=== PATIENT | male | born 1985 | race African-American/Black ===

== ENCOUNTER 2018-08-02 15:23 | Emergency (ER) | payer SELFPAY ==
[~2018-08-02] VITALS: Ht 182.9 cm; Wt 95.3 kg
[2018-08-02 16:00] LABS: BASO # 0.1 x10^3/uL (0.0-0.2); BASO % 0 % (0-3); EOS # 0.3 x10^3/uL (0.0-0.7); EOS % 2 % (0-3); HEMATOCRIT 44.2 % (39.0-53.0); HEMOGLOBIN 15.4 g/dL (13.0-17.5); LYMPH # 1.7 x10^3/uL (1.0-4.8); LYMPH % 10 % (24-48); MEAN CORPUSCULAR HEMOGLOBIN 31 pg (25-35); MEAN CORPUSCULAR HGB CONC 35 g/dL (31-37); MEAN CORPUSCULAR VOLUME 88 fL (79-100); MONO # 1.2 x10^3/uL (0.0-1.1); MONO % 7 % (0-9); NEUT # 13.4 x10^3uL (1.8-7.7); NEUT % 80 % (31-73); PLATELET COUNT 226 x10^3/uL (140-400); RED BLOOD COUNT 5.05 x10^6/uL (4.30-5.70); RED CELL DISTRIBUTION WIDTH 13.7 % (11.5-14.5); WHITE BLOOD COUNT 16.6 x10^3/uL (4.0-11.0)
--- NOTE | 2018-08-02 16:14 | RAD ---
History: Patient with nausea and vomiting for 2 days. Epigastric pain. Comparison: None. Findings: AP view of abdomen. Bowel gas pattern is nonspecific, without evidence of obstruction. Mild amount of stool is seen. Impression: Nonspecific bowel gas pattern. Electronically signed by: Haroon Negron MD (08/02/2018 4:10 PM) [place] [id number]
[2018-08-02] MEDS ORDERED: IOHEXOL 300 MG/ML 100ML VIAL. IV ONE (16:15)
[2018-08-02] MEDS ORDERED: CONTRAST GIVEN. MC PRN (16:15)
[2018-08-02] MEDS ORDERED: ONDANSETRON PF 4 MG/2 ML VIAL. IV ONE (16:30)
[2018-08-02] MEDS ORDERED: IV NORMAL SALINE 1000ML BAG 1,000 ML IV ONE (16:30)
[2018-08-02 16:36] LABS: BILIRUBIN,URINE NEGATIVE (NEG); CLARITY,URINE CLEAR; COLOR,URINE AMBER; NITRITE,URINE NEGATIVE (NEG); PH,URINE 7.5; PROTEIN,URINE 100 mg/dL (NEG-TRACE); UROBILINOGEN,URINE 0.2 mg/dL (0.2 mg/dL)
[2018-08-02 16:39] LABS: BARBITURATES NEG (NEG); BENZODIAZEPINES NEG (NEG); CANNABINOIDS NEG (NEG); COCAINE NEG (NEG); METHADONE NEG (NEG); OPIATES NEG (NEG); PHENCYCLIDINE NEG (NEG)
[2018-08-02 16:41] LABS: AMPHETAMINE/METHAMPHETAMINE NEG (NEG)
[2018-08-02 16:53] LABS: CREATININE 0.9 mg/dL (0.7-1.3); GFR 116.9; POTASSIUM 3.3 mmol/L (3.5-5.1)
[2018-08-02 16:55] LABS: BACTERIA,URINE 0 /HPF (0-FEW); SQUAMOUS EPITHELIAL CELL,UR FEW /LPF
[2018-08-02 16:58] LABS: % BANDS 3 % (0-9); % EOS 2 % (0-5); % LYMPHS 11 % (24-48); % MONOS 6 % (0-10); % SEGS 78 % (35-66); PLT ESTIMATE ADEQUATE (ADEQUATE)
[2018-08-02 16:59] LABS: ALBUMIN/GLOBULIN RATIO 0.8 (1.0-1.7); TOTAL PROTEIN 6.7 g/dL (6.4-8.2)
[2018-08-02] MEDS ORDERED: cloNIDine HCL 0.1 MG TABLET PO ONE (17:15)
[2018-08-02] MEDS ORDERED: MORPHINE SULFATE 10 MG/ML VIAL. IV ONE (17:15)
--- NOTE | 2018-08-02 17:15 | PHYS DOC ---
Adult General Chief Complaint Chief Complaint: ABDOMINAL PAIN HPI HPI Patient is a 33 year old male with no significant medical history who presents with 10/10 bilateral upper abdominal pain that began Tuesday which is days ago. Patient described as abdominal distention. He is also complaining of vomiting with nausea since Tuesday. He states when symptoms began he thought he was constipated, he states he took [id number] bowel preps/laxatives, he states he developed diarrhea. He states since yesterday has had vomiting and diarrhea. She states he feels his stomach is distended. Patient denies any fever. Review of Systems Review of Systems Constitutional: Denies fever or chills [] Eyes: Denies change in visual acuity, redness, or eye pain [] HENT: Denies nasal congestion or sore throat [] Respiratory: Denies cough or shortness of breath [] Cardiovascular: No additional information not addressed in HPI [] GI: Reports abdominal pain, abdominal distention, nausea and vomiting and diarrhea : Denies dysuria or hematuria [] Musculoskeletal: Denies back pain or joint pain [] Integument: Denies rash or skin lesions [] Neurologic: Denies headache, focal weakness or sensory changes [] All other systems were reviewed and found to be within normal limits, except as documented in this note. Current Medications Current Medications Current Medications Medications (Trade) Dose Ordered Sig/Leann Start Time Stop Time Status Last Admin Dose Admin Clonidine HCl (Catapres) 0.2 mg 1X ONCE 08/02/18 17:15 08/02/18 17:16 DC 08/02/18 17:20 0.2 MG Info (CONTRAST GIVEN -- Rx MONITORING) 1 each PRN DAILY PRN 08/02/18 16:15 08/04/18 16:14 Iohexol (Omnipaque 300 Mg/ml) 75 ml 1X ONCE 08/02/18 16:15 08/02/18 16:16 DC 08/02/18 16:15 75 ML Morphine Sulfate (Morphine Sulfate) 5 mg 1X ONCE 08/02/18 17:15 08/02/18 17:16 DC 08/02/18 17:21 5 MG Ondansetron HCl (Zofran) 4 mg 1X ONCE 08/02/18 16:30 08/02/18 16:31 DC 08/02/18 16:23 4 MG Sodium Chloride 1,000 ml @ 1,000 mls/hr 1X ONCE 08/02/18 16:30 08/02/18 17:29 DC 08/02/18 16:24 1,000 MLS/HR Allergies Allergies Allergies Coded Allergies Type Severity Reaction Last Updated Verified No Known Drug Allergies 08/02/18 No Physical Exam Physical Exam Constitutional: Well developed, well nourished, no acute distress, non-toxic appearance. [] HENT: Normocephalic, atraumatic, bilateral external ears normal, oropharynx moist, no oral exudates, nose normal. [] Eyes: PERRLA, EOMI, conjunctiva normal, no discharge. [] Neck: Normal range of motion, no tenderness, supple, no stridor. [] Cardiovascular:Heart rate regular rhythm, no murmur [] Lungs & Thorax: Bilateral breath sounds clear to auscultation [] Abdomen: Tenderness on palpation of bilateral upper abdomen worse on the left upper quadrant. Bowel sounds normal, soft, no right lower quadrant tenderness, no masses, no pulsatile masses. Negative York sign, negative psoas sign, negative obturator sign. Skin: Warm, dry, no erythema, no rash. [] Back: No tenderness, no CVA tenderness. [] Extremities: No tenderness, no cyanosis, no clubbing, ROM intact, no edema. [] Neurologic: Alert and oriented X 3, normal motor function, normal sensory function, no focal deficits noted. [] Psychologic: Affect normal, judgement normal, mood normal. [] Current Patient Data Vital Signs Vital Signs Date Time Temp Pulse Resp B/P (MAP) Pulse Ox O2 Delivery O2 Flow Rate FiO2 08/02/18 17:21 16 08/02/18 17:20 91 200/109 08/02/18 15:53 98.6 97 Room Air 98.6 Lab Values Laboratory Tests Test 08/02/18 13:50 08/02/18 16:25 White Blood Count 16.6 x10^3/uL (4.0-11.0) H Red Blood Count 5.05 x10^6/uL (4.30-5.70) Hemoglobin 15.4 g/dL (13.0-17.5) Hematocrit 44.2 % (39.0-53.0) Mean Corpuscular Volume 88 fL (79-100) Mean Corpuscular Hemoglobin 31 pg (25-35) Mean Corpuscular Hemoglobin Concent 35 g/dL (31-37) Red Cell Distribution Width 13.7 % (11.5-14.5) Platelet Count 226 x10^3/uL (140-400) Neutrophils (%) (Auto) 80 % (31-73) H Lymphocytes (%) (Auto) 10 % (24-48) L Monocytes (%) (Auto) 7 % (0-9) Eosinophils (%) (Auto) 2 % (0-3) Basophils (%) (Auto) 0 % (0-3) Neutrophils # (Auto) 13.4 x10^3uL (1.8-7.7) H Lymphocytes # (Auto) 1.7 x10^3/uL (1.0-4.8) Monocytes # (Auto) 1.2 x10^3/uL (0.0-1.1) H Eosinophils # (Auto) 0.3 x10^3/uL (0.0-0.7) Basophils # (Auto) 0.1 x10^3/uL (0.0-0.2) Segmented Neutrophils % 78 % (35-66) H Band Neutrophils % 3 % (0-9) Lymphocytes % 11 % (24-48) L Monocytes % 6 % (0-10) Eosinophils % 2 % (0-5) Platelet Estimate Adequate (ADEQUATE) Urine Collection Type Unknown Urine Color Zo Urine Clarity Clear Urine pH 7.5 Urine Specific [place] 1.015 Urine Protein 100 mg/dL (NEG-TRACE) Urine Glucose (UA) Negative mg/dL (NEG) Urine Ketones (Stick) 40 mg/dL (NEG) Urine Blood Negative (NEG) Urine Nitrite Negative (NEG) Urine Bilirubin Negative (NEG) Urine Urobilinogen Dipstick 0.2 mg/dL (0.2 mg/dL) Urine Leukocyte Esterase Negative (NEG) Urine RBC 1-2 /HPF (0-2) Urine WBC 1-4 /HPF (0-4) Urine Squamous Epithelial Cells Few /LPF Urine Bacteria 0 /HPF (0-FEW) Urine Mucus Mod /LPF Urine Opiates Screen Neg (NEG) Urine Methadone Screen Neg (NEG) Urine Barbiturates Neg (NEG) Urine Phencyclidine Screen Neg (NEG) Urine Amphetamine/Methamphetamine Neg (NEG) Urine Benzodiazepines Screen Neg (NEG) Urine Cocaine Screen Neg (NEG) Urine Cannabinoids Screen Neg (NEG) Urine Ethyl Alcohol Neg (NEG) Sodium Level 135 mmol/L (136-145) L Potassium Level 3.3 mmol/L (3.5-5.1) L Chloride Level 94 mmol/L (98-107) L Carbon Dioxide Level 31 mmol/L (21-32) Anion Gap 10 (6-14) Blood Urea Nitrogen 6 mg/dL (8-26) L Creatinine 0.9 mg/dL (0.7-1.3) Estimated GFR (Cockcroft-Gault) 116.9 BUN/Creatinine Ratio 7 (6-20) Glucose Level 108 mg/dL (70-99) H Calcium Level 9.0 mg/dL (8.5-10.1) Total Bilirubin 1.0 mg/dL (0.2-1.0) Aspartate Amino Transferase (AST) 61 U/L (15-37) H Alanine Aminotransferase (ALT) 67 U/L (16-63) H Alkaline Phosphatase 81 U/L (46-116) Total Protein 6.7 g/dL (6.4-8.2) Albumin 3.0 g/dL (3.4-5.0) L Albumin/Globulin Ratio 0.8 (1.0-1.7) L Lipase 1242 U/L (73-393) H Ethyl Alcohol Level < 10 mg/dL (0-10) Laboratory Tests 08/02/18 13:50 Laboratory Tests 08/02/18 16:25 EKG EKG [] Radiology/Procedures Radiology/Procedures []PROCEDURE: CT ABD PELV W/ IV CONTRST ONLY CT ABD PELV W/ IV CONTRST ONLY Indication: ABD PAIN CONSTIPATION INJ 75ML OMNI 300 NO PREV Exposure: One or more of the following individualized dose reduction techniques were utilized for this examination: 1. Automated exposure control 2. Adjustment of the mA and/or kV according to patient size 3. Use of iterative reconstruction technique. Comparison: None are available. Contrast: Intravenous contrast was given. No oral contrast per request. FINDINGS: Lower thorax: Linear atelectasis both lung bases. Liver: Enlarged, about 24.5 cm longitudinal. Hypodense compatible with steatosis. Spleen: Unremarkable Pancreas: Mild enlargement or swelling of the pancreatic head. There is abnormal tissue surrounding the pancreatic head with stranding extending in the adjacent peripancreatic fat. Adrenals: No evidence of mass. Kidneys: Left kidney is located in the pelvis. Right kidney is within the expected location. Both kidneys demonstrate symmetric enhancement. No dominant lesion. Urinary tracts: No hydronephrosis. Gallbladder: Not visualized Lymph nodes: No significant enlargement Vessels: Aorta is nonaneurysmal. GI tract: Wall thickening of the duodenum, which is inseparable from the soft tissue and fatty changes around the pancreatic head as discussed above. No bowel obstruction. There are a few small scattered colonic diverticula, no evidence of acute colitis. Mild soft tissue or wall thickening at the posterior cecum, could represent some stool, difficult to exclude mass. There is some density within the posterior cecum could be due to a prior contrast procedure. Appendix appears within normal limits. Reproductive organs:No evidence of mass. Urinary bladder: Mild wall thickening, but incompletely distended Peritoneum: No evidence of pneumoperitoneum. No free fluid. Abdominal wall:Unremarkable Spine: Mild degenerative spondylosis. Bones: No destructive process identified. IMPRESSION: 1. Enlargement or swelling of the pancreatic head, with abnormal peripancreatic tissue and stranding. This may represent pancreatitis, correlate with clinical and laboratory findings. Pancreatic head mass is not excludable. 2. Wall thickening of the adjacent duodenum, considerations include reactive secondary duodenitis, or primary infectious duodenitis. 3. Hepatomegaly with steatosis. 4. Left pelvic kidney. 5. Lung base atelectasis. 6. Findings discussed with Dr. Prajapati in the emergency room. Electronically signed by: Haroon Gruber MD (08/02/2018 5:35 PM) [facility] DICTATED and SIGNED BY: HAROON GRUBER MD DATE: 08/02/181722 Course & Med Decision Making Course & Med Decision Making Pertinent Labs and Imaging studies reviewed. (See chart for details) This is a 33-year-old male patient presenting to the ED today complaining of bilateral abdominal pain, nausea vomiting and diarrhea since Tuesday. CBC with a WBC of 16.6, CMP with AST of 61, AST of 67, lipase 1242. Patient states he drinks heavily, he states the last time he drank is Tuesday. Dr. Prajapati received a call from the radiologist stating patient could have pancreatitis or a mass on his pancreas. His blood pressure was running in the low 200s over low 100s, patient states he has history of hypertension and is not on any medication. Encouraged patient to follow up with the PCP to be placed on high blood pressure medication. Communicated results to patient. Patient states he would like to be sent home with pain medicine and follow up with GI as an outpatient. He states he cannot be admitted today. Patient was given the risk of leaving AMA including and disability which he agreed to, patient is A&OX3 and able to make his own decisions. Given prescription for Zofran and hydrocodone as needed. Dragon Disclaimer Dragon Disclaimer This electronic medical record was generated, in whole or in part, using a voice recognition dictation system. Departure Departure Impression: Primary Impression: Acute pancreatitis Additional Impressions: Hypertension ETOH abuse Disposition: AGAINST MEDICAL ADVICE Condition: STABLE Referrals: NO PCP (PCP) JOSHUA WOMACK MD Follow-up in one week Patient Instructions: Acute Pancreatitis, Alcohol Problems, Hypertension Additional Instructions: You were evaluated in the emergency room, your lab work as well as CT shows you have pancreatitis, you could also have a mass on your pancrease. Please follow- up with a GI doctor provided as soon as possible. Also follow-up with your primary care doctor for blood pressure management. Scripts Ondansetron (ZOFRAN ODT) 4 Mg Tab.rapdis 1 TAB SL Q8HRS, #15 TAB Prov: CASANDRA HUGHES APRN 08/02/18 Hydrocodone/Apap 5-325 (NORCO 5-325 TABLET) 1 Each Tablet 1 TAB PO Q4-6HRS PRN for PAIN, #20 TAB Prov: CASANDRA HUGHES APRN 08/02/18 Problem Qualifiers Primary Impression: Acute pancreatitis Pancreatitis type: alcohol induced Acute pancreatitis complication: unspecified Qualified Codes: K85.20 - Alcohol induced acute pancreatitis without necrosis or infection Additional Impressions: Hypertension Hypertension type: unspecified Qualified Codes: I10 - Essential (primary) hypertension CASANDRA HUGHES APRN Aug 02, 2018 17:15
[2018-08-02 17:20] VITALS: BP 200/109
--- NOTE | 2018-08-02 17:39 | RAD ---
CT ABD PELV W/ IV CONTRST ONLY Indication: ABD PAIN CONSTIPATION INJ 75ML OMNI 300 NO PREV Exposure: One or more of the following individualized dose reduction techniques were utilized for this examination: 1. Automated exposure control 2. Adjustment of the mA and/or kV according to patient size 3. Use of iterative reconstruction technique. Comparison: None are available. Contrast: Intravenous contrast was given. No oral contrast per request. FINDINGS: Lower thorax: Linear atelectasis both lung bases. Liver: Enlarged, about 24.5 cm longitudinal. Hypodense compatible with steatosis. Spleen: Unremarkable Pancreas: Mild enlargement or swelling of the pancreatic head. There is abnormal tissue surrounding the pancreatic head with stranding extending in the adjacent peripancreatic fat. Adrenals: No evidence of mass. Kidneys: Left kidney is located in the pelvis. Right kidney is within the expected location. Both kidneys demonstrate symmetric enhancement. No dominant lesion. Urinary tracts: No hydronephrosis. Gallbladder: Not visualized Lymph nodes: No significant enlargement Vessels: Aorta is nonaneurysmal. GI tract: Wall thickening of the duodenum, which is inseparable from the soft tissue and fatty changes around the pancreatic head as discussed above. No bowel obstruction. There are a few small scattered colonic diverticula, no evidence of acute colitis. Mild soft tissue or wall thickening at the posterior cecum, could represent some stool, difficult to exclude mass. There is some density within the posterior cecum could be due to a prior contrast procedure. Appendix appears within normal limits. Reproductive organs:No evidence of mass. Urinary bladder: Mild wall thickening, but incompletely distended Peritoneum: No evidence of pneumoperitoneum. No free fluid. Abdominal wall:Unremarkable Spine: Mild degenerative spondylosis. Bones: No destructive process identified. IMPRESSION: 1. Enlargement or swelling of the pancreatic head, with abnormal peripancreatic tissue and stranding. This may represent pancreatitis, correlate with clinical and laboratory findings. Pancreatic head mass is not excludable. 2. Wall thickening of the adjacent duodenum, considerations include reactive secondary duodenitis, or primary infectious duodenitis. 3. Hepatomegaly with steatosis. 4. Left pelvic kidney. 5. Lung base atelectasis. 6. Findings discussed with Dr. Prajapati in the emergency room. Electronically signed by: Haroon Gruber MD (08/02/2018 5:35 PM) [facility]
[2018-08-02] MEDS ORDERED: HYDR-3164 PO (17:51)
[2018-08-02] MEDS ORDERED: ONDA4TAB10 SL (17:51)
== END 2018-08-02 18:00 | disposition left against medical advice (07) ==
LOC: ER 15:23
DX: K85.20 Alcohol induced acute pancreatitis without necrosis or infection (principal); R11.2 Nausea with vomiting, unspecified; I10 Essential (primary) hypertension; F10.10 Alcohol abuse, uncomplicated; R16.0 Hepatomegaly, not elsewhere classified; J98.11 Atelectasis; Y90.0 Blood alcohol level of less than 20 mg/100 ml
CPT/HCPCS: 36415; 74018; 74177; 80053; 80307; 81001; 83690; 85007; 85025; 96361; 96374; 96375; 99285; G0480; J2270; J2405; J7030; Q9967